=== PATIENT | female | born 2005 | race African-American/Black ===

== ENCOUNTER 2024-09-25 21:54 | Emergency (ER) | payer OTHER, SELFPAY ==
--- NOTE | ~2024-09-25 | XR_ITS ---
EXAMINATION: XR chest 2V DATE: 09/25/2024 22:23 INDICATION: Chest pressure. TECHNIQUE: Frontal and lateral views of the chest were obtained. COMPARISON: Chest 2 views 07/31/2005 FINDINGS: There is no pneumonia, pleural effusion, or pneumothorax. The heart size is normal. There a re surgical clips in the abdomen. There is mild chronic anterior wedging of lower thoracic vertebral bodies. IMPRESSION: 1. No acute cardiopulmonary disease. Reviewed, dictated and finalized at location A. [facility]
--- NOTE | 2024-09-25 21:56 | ECG_ITS ---
Test Date: 2024-09-25 22:08:54 Measurements Intervals [place] Rate: 79 P: 57 ND: 155 QRS: 56 QRSD: 88 T: -3 QT: 356 QTc: 409 Interpretive Statements SINUS RHYTHM NONSPECIFIC T-WAVE ABNORMALITY No previous ECG available for comparison Electronically Signed On 09-26-2024 16:13:04 PROCESS DESCRIPTION WRITER by Anni Rosado M.D.
[2024-09-25 22:00] VITALS: BP 142/55; PULSE 79; RESP 17; TEMP 36.3; O2SAT 100
[2024-09-25 22:39] LABS: Basophils Percent Auto 0.4 % (0.2-1.2); Eosinophils Absolute Auto 0.1 K/mm3 (0-0.3); Eosinophils Percent Auto 0.7 % (0-4.4); Hematocrit 35.7 % (37.0-47.0); Immature Granulocyte Absolute 0.02 K/mm3 (0.00-0.031); Immature Granulocyte Percent A 0.3 % (0-0.5); Lymphocytes Absolute Auto 2.24 K/mm3 (0.9-3.2); Lymphocytes Percent Auto 33.3 % (18.3-44.2); Mean Corpuscular HGB Conc 30.8 g/dl (32-36); Mean Corpuscular Hemoglobin 24.8 pg (26-34); Mean Corpuscular Volume 80.4 fl (80-100); Mean Platelet Volume 12.1 fl (7.4-10.4); Monocytes Absolute Auto 0.5 K/mm3 (0.1-0.6); Monocytes Percent Auto 7.4 % (2.6-8.5); Neutrophils Absolute Auto 3.9 K/mm3 (1.3-6.7); Neutrophils Percent Auto 57.9 % (45.5-73.1); Platelet Count Result 229 k/mm3 (150-375); Red Blood Count 4.44 M/mm3 (4.2-5.4); Red Cell Distribution Width 15.4 % (11.5-14.5); White Blood Count 6.7 K/mm3 (4.5-10.0)
[2024-09-25 22:51] VITALS: O2SAT 100
--- NOTE | 2024-09-25 22:52 | PC.NURSE ---
Patient denies pain at this time. patient states the pressure lasted about 5 minutes then went away and patient has not had pain since
[2024-09-25 22:53] LABS: INR 1.1; Prothrombin Time 14.3 Seconds (11.1-14.7)
[2024-09-25 22:54] LABS: Partial Thromboplastin Time 29.5 Seconds (22.3-36.8)
[2024-09-25 22:55] LABS: Alanine Aminotransferase 13 U/L (6-35); Alkaline Phosphatase 57 U/L (38-126); Anion Gap 3 mmol/L (4-12); Aspartate Amino Transferase 23 U/L (14-36); Bilirubin,Total 0.6 mg/dL (0.2-1.3); Blood Urea Nitrogen 8 mg/dL (7-17); Calcium 9.1 mg/dL (8.4-10.2); Carbon Dioxide 26 mmol/L (22-30); Chloride 109 mmol/L (98-107); Estimated CRCL calculation 134 ml/min; Estimated Glomerular Filt Rate > 60; Glucose 96 mg/dL (65-110); Lipase 201 U/L (23-300); Potassium 3.3 mmol/L (3.4-5.0); Sodium 138 mmol/L (137-145)
[2024-09-25 23:06] LABS: Troponin I < 0.012 ng/mL (0.000-0.034)
--- NOTE | 2024-09-26 00:42 | ED_ITS ---
HPI - General Adult General Chief complaint: Chest Pain Stated complaint: random sharp pain in chest Time Seen by Provider: 09/25/24 23:49 History of Present Illness HPI narrative: Patient is a 28-year-old female who presents emergency department with chief complaint of chest pain. Patient reports that about an hour prior to arrival she had an episode where it felt like a band around her chest. The patient reports that it got tight reports that it lasted for about 10 minutes the patient does report that she has history of gastric sleeve reports that she has not had any real complications with that in the past. The patient reports no prior history of cardiac disease Related Data Home Medications ?Medication ?Instructions ?Recorded ?Confirmed ?Last Taken ?Type No Home Medications 05/30/24 05/30/24 Unknown History Allergies Allergy/AdvReac Type Severity Reaction Status Date / Time No Known Allergies Allergy Verified 05/30/24 14:48 Review of Systems 2 Review of Systems: A 10 system review of systems was completed on the patient and is negative except for what is stated in the HPI. Nursing and ancillary documentation was reviewed. [facility] Family History Family History Mother Hypertension Diabetes mellitus PCOS (polycystic ovarian syndrome) Social History Social History Smoking status: Never smoker Alcohol intake: never Substance use: never Substance use type: does not use Living arrangements: with family Occupation/Education: student Exam 2 Narrative: GENERAL: Well-appearing, well-nourished, and in no acute distress. HEAD: Normocephalic, atraumatic. EYES: PERRLA and EOMI. ENT: Nares clear, no rhinorrhea or epistaxis. Mucous membranes moist. NECK: Supple. CHEST: Clear to auscultation. No respiratory distress. HEART: Regular rate and rhythm. No murmur heard. Normal peripheral pulses. ABDOMEN: Soft, nontender, nondistended, normal active bowel sounds. EXTREMITIES: Normal range of motion. No edema. SKIN: Warm, dry, no rash. NEURO: No focal deficits. Alert and oriented x3. PSYCH: Normal mood and affect. Course Vital Signs Vital signs: Vital Signs Temperature 36.3 C L 09/25/24 22:00 Pulse Rate 79 09/25/24 22:00 Respiratory Rate 17 12/16/24 22:00 Blood Pressure 142/55 H 09/25/24 22:00 Pulse Oximetry 100 09/25/24 22:00 Oxygen Delivery Room Air 09/25/24 22:00 Temperature 36.3 C L 09/25/24 22:00 Pulse Rate 69 09/26/24 02:01 Respiratory Rate 14 09/26/24 02:01 Blood Pressure 117/56 L 09/26/24 02:01 Pulse Oximetry 99 09/26/24 02:01 Oxygen Delivery Room Air 09/25/24 22:51 Medical Decision Making MDM Narrative Medical decision making narrative: differential diagnosis includes ACS, chest wall pain, EKG showed no acute ischemic changes initial troponin was negative, 3 hour troponin was negative. Laboratory studies otherwise showed no acute abnormality the patient was discharged home to follow-up with her primary care provider Vital Signs Vital Signs: Vital Signs Temperature 36.3 C L 09/25/24 22:00 Pulse Rate 79 09/25/24 22:00 Respiratory Rate 17 09/25/24 22:00 Blood Pressure 142/55 H 09/25/24 22:00 Pulse Oximetry 100 09/25/24 22:00 Oxygen Delivery Room Air 09/25/24 22:00 Temperature 36.3 C L 09/25/24 22:00 Pulse Rate 69 09/26/24 02:01 Respiratory Rate 14 09/26/24 02:01 Blood Pressure 117/56 L 09/26/24 02:01 Pulse Oximetry 99 09/26/24 02:01 Oxygen Delivery Room Air 09/25/24 22:51 Lab Data 09/25/24 22:32 09/25/24 22:32 Labs: Lab Results 09/25/24 09/26/24 Range/Units 22:32 01:11 WBC 6.7 (4.5-10.0) K/mm3 RBC 4.44 (4.2-5.4) M/mm3 Hgb 11.0 L (12.0-15.0) g/dL Hct 35.7 L (37.0-47.0) % MCV 80.4 (80-100) fl MCH 24.8 L (26-34) pg MCHC 30.8 L (32-36) g/dl RDW 15.4 H (11.5-14.5) % Plt Count 229 (150-375) k/mm3 MPV 12.1 H (7.4-10.4) fl Immature Gran % (Auto) 0.3 (0-0.5) % Neut % (Auto) 57.9 (45.5-73.1) % Lymph % (Auto) 33.3 (18.3-44.2) % [place] % (Auto) 7.4 (2.6-8.5) % Eos % (Auto) 0.7 (0-4.4) % Baso % (Auto) 0.4 (0.2-1.2) % Lymph # (Auto) 2.24 (0.9-3.2) K/mm3 [place] # (Auto) 0.5 (0.1-0.6) K/mm3 Eos # (Auto) 0.1 (0-0.3) K/mm3 Baso # (Auto) 0.0 (0.0-0.1) K/mm3 Abs Immat Gran (auto) 0.02 (0.00-0.031) K/mm3 Absolute Neuts (auto) 3.9 (1.3-6.7) K/mm3 Absolute Nucleated RBC 0.000 (0.0-0.012) K/mm3 Nucleated RBC % 0.0 (0.0-0.2) % PT 14.3 (11.1-14.7) Seconds INR 1.1 APTT 29.5 (22.3-36.8) Seconds Sodium 138 (137-145) mmol/L Potassium 3.3 L (3.4-5.0) mmol/L Chloride 109 H (98-107) mmol/L Carbon Dioxide 26 (22-30) mmol/L Anion Gap 3 L (4-12) mmol/L BUN 8 (7-17) mg/dL Creatinine 0.80 (0.7-1.0) mg/dL Estim Creat Clear Calc 134 ml/min Estimated GFR > 60 (59 - ) Glucose 96 (65-110) mg/dL Calcium 9.1 (8.4-10.2) mg/dL Total Bilirubin 0.6 (0.2-1.3) mg/dL AST 23 (14-36) U/L ALT 13 (6-35) U/L Alkaline Phosphatase 57 (38-126) U/L Troponin I < 0.012 < 0.012 (0.000-0.034) ng/mL Total Protein 8.0 (6.3-8.2) g/dL Albumin 4.0 (3.5-5.1) g/dL Lipase 201 (23-300) U/L Discharge Plan Discharge Clinical Impression: Atypical chest pain Patient Disposition: Home, Self-Care Condition: Stable Instructions: Antibiotic Form, Chest Pain (ED) Patient Language: Malawian Prescriptions: No Action No Home Medications Follow-up/Referrals: Luis Carlos,MD Jose [Primary Care Provider] - Time of Disposition: 02:24 Quality HEART score for chest pain patients History: slightly suspicious ECG: normal Age: < or = to 45 years Risk factors: 1 or 2 risk factors Troponin: < or = to 1x normal limit Heart score: 1
[2024-09-26 01:39] LABS: Troponin I < 0.012 ng/mL (0.000-0.034)
[2024-09-26 02:01] VITALS: BP 117/56; PULSE 69; RESP 14; O2SAT 99
[2024-09-26 02:35] VITALS: BP 124/78; PULSE 70; RESP 20; O2SAT 100
== END 2024-09-26 02:37 | disposition home or self-care (01) ==
PROVIDERS: Emergency Provider Emergency Medicine; PCP Internal Medicine
DX: R07.89 Other chest pain (principal); R94.31 Abnormal electrocardiogram [ECG] [EKG]
CPT/HCPCS: 36415; 71046; 80053; 83690; 84484; 85025; 85610; 85730; 93005; 99284

== ENCOUNTER 2025-01-10 08:46 | Emergency (ER) | payer OTHER, SELFPAY ==
[2025-01-10 08:52] VITALS: BP 136/74; PULSE 74; RESP 16; TEMP 36.7; O2SAT 99
--- OUTSIDE RECORDS SUMMARY | 2025-01-10 09:00 | XMS_ITS | Data Portability ---
Author Organization [facility] JOEYNehal Address [address] [place] [address] Care Team Providers Care Information Security Officer Name Role Phone HUGO TARUN Primary Care Provider [phone] Assessment Encounter Date Assessment Date Assessment LastModified by Organization Details LastModified Time 04/03/2024 04/03/2024 given mom's history of PCOS weight gain we will obtain blood work transvaginal ultrasound get her set up with air dispatcher appointment healthier lifestyle instructions discussed I will see her back in 4-6 weeks [email or web address] Not available 04/08/2024 13:03:55 05/08/2024 05/08/2024 left ovarian cyst possibly hemorrhagic she is already set up to see air dispatcher. Microcytic anemia she can take the iron probably from menstrual losses. Follow up with me in 4 months Not available 05/11/2024 21:13:34 10/26/2024 10/26/2024 healthy lifestyle instructions she will see me back in a year [email or web address] Not available 10/26/2024 23:15:32 Plan of Treatment Reminders Order Date Submit Date Provider Last Modified By Organization Details Last Modified Time Details Appointments None recorded. Lab TSH + free T4, serum 2023 024 ZURDO [facility], [address] [facility], [facility] [address], [place], [address], 12:38:23 TSH, ultra-sensi tive, serum 2023 024 cyahlma [facility], [address] [facility], [facility], [place], [address], 07/26/202 4 13:42:04 CBC w/ auto diff 2023 024 ZURDO [facility], [address] [facility], [address], [place], [address], 4 12:38:27 CMP, serum or plasma 2023 024 ZURDO [facility], [address] [facility], [address], [place], [address], 4 12:38:24 cortisol, serum or plasma 2023 024 ZURDO [facility], [address] [facility], [address], [place], [address], 4 12:38:25 insulin, serum 2023 024 ZURDO [facility], [address] [facility], [facility], [place], [address], 4 12:38:26 prolactin, serum 2023 024 ZURDO [facility], [address] [facility], [address], [place], [address], 4 12:38:26 dhea-sulfat e, serum 2023 024 ZURDO [facility], [address] [facility], [facility], [place], [address], 4 15:14:36 lipid panel, serum 2023 024 ZURDO [facility], [address] [facility], [address], [place], [address], 4 12:38:24 Referral endocrinolo gy referral 2023 024 [place], [address] , [place], [address], 5 12:13:23 gynecologis t referral 2023 024 millicent Carrion MD, [address], [address], [place], [address], 5 12:13:23 Procedures None recorded. Surgeries None recorded. Imaging US, transvagina l 2023 024 [facility] [place] (Imaging), [address] [place], [address], 4 23:18:19 Medication Orders None recorded. Patient TargetsNo targets recorded. Patient Instructions Encounter Date Encounter Id Patient Instructions Last Modified By Organization Details Last Modified Time 04/03/2024 [id number] A healthy lifestyle: care instructions [email or web address] Not available 04/03/2024 17:57:45 10/26/2024 [id number] A healthy lifestyle: care instructions [email or web address] Not available 10/26/2024 14:40:35 Reason for Referral Account Representative Referral for Gy necologic examination Referring Physician: Tarun Aldridge, Internal Medicine, Encounter Date: 04/03/2024 Endocrinology Referral for W eight gain Referring Physician: Tarun Aldridge, Internal Medicine, Encounter Date: 04/03/2024 Results Created Date Observation Date Name Description Value Unit Range Abnormal Flag Note LastModifiedBy Organization Detail LastModifiedTime 05/20/2005/20/2022 Chori ogona dotro pin.b eta subun it [Unit s/vol ume] in Serum or Plasm a B-HCG <0.2 B-HCG Not Available Not Availa ble 11/24/2024 16:02:59 04/04/2004/05/2024 TSH+F REE T4 TSH 3.280 uIU/m L 0.450- 4.500 Not Available [facility] ([facility]) [address] [place], [address], 04/05/2024 12:38:23 04/04/20 24 04/05/2024 TSH+F REE T4 T4,free(dire ct) 1.09 NG/dL 0.93-1 .60 Not Available [facility] ([facility]) [address] [facility], [place], [address], 04/05/2024 12:38:23 04/04/20 24 04/05/2024 LIPID PANEL cholesterol, total 176 mg/dL 100-16 9 above high normal Not Available [facility] ([facility]) [address] [facility] [place], [address], 04/05/2024 12:38:23 04/04/20 24 04/05/2024 LIPID PANEL triglyceride s 69 mg/dL 0-89 Not Available [facility] ([facility]) [address] [place], [address], 04/05/2024 12:38:23 04/04/20 24 04/05/2024 LIPID PANEL HDL cholesterol 43 mg/dL >39 Not Available [facility] ([facility]) [address] [place], [address], 04/05/2024 12:38:23 04/04/20 24 04/05/2024 LIPID PANEL VLDL cholesterol thomas 13 mg/dL 5-40 Not Available [facility] ([facility]) [address] [place], [address], 04/05/2024 12:38:23 04/04/20 24 04/05/2024 LIPID PANEL LDL chol calc ([facility]) 120 mg/dL 0-109 above high normal Not Available [facility] ([facility]) [address] [place], [address], 04/05/2024 12:38:23 04/04/20 24 04/05/2024 COMP. METAB OLIC PANEL (14) glucose 90 mg/dL 70-99 Not Available [facility] ([facility]) [address] [place], [address], 04/05/2024 12:38:24 04/04/20 24 04/05/2024 COMP. METAB OLIC PANEL (14) BUN 9 mg/dL 6-20 Not Available [facility] ([facility]) [address] [place], [address], 04/05/2024 12:38:24 04/04/20 24 04/05/2024 COMP. METAB OLIC PANEL (14) creatinine 0.82 mg/dL 0.57-1 .00 Not Available [facility] ([facility]) [address] [place], [address], 04/05/2024 12:38:24 04/04/20 24 04/05/2024 COMP. METAB OLIC PANEL (14) eGFR 106 mL/mi n/1.7 3 >59 Not Available [facility] ([facility]) [address] [facility] [place], [address], 04/05/2024 12:38:24 04/04/20 24 04/05/2024 COMP. METAB OLIC PANEL (14) BUN/creatini ne ratio 11 9-23 Not Available [facility] ([facility]) [address] [facility], [place], [address], 04/05/2024 12:38:24 04/04/20 24 04/05/2024 COMP. METAB OLIC PANEL (14) sodium 140 mmol/ L 134-14 4 Not Available [facility] ([facility]) [address] [facility] [place], [address], 04/05/2024 12:38:24 04/04/20 24 04/05/2024 COMP. METAB OLIC PANEL (14) potassium 4.4 mmol/ L 3.5-5. 2 Not Available [facility] ([facility]) [address] [facility] [place], [address], 04/05/2024 12:38:24 04/04/20 24 04/05/2024 COMP. METAB OLIC PANEL (14) chloride 106 mmol/ L 96-106 Not Available [facility] ([facility]) [address] [facility] [place], [address], 04/05/2024 12:38:24 04/04/20 24 04/05/2024 COMP. METAB OLIC PANEL (14) carbon dioxide, total 23 mmol/ L 20 Not Available [facility] ([facility]) [address] [place], [address], 04/05/2024 12:38:24 04/04/20 24 04/05/2024 COMP. METAB OLIC PANEL (14) calcium 9.0 mg/dL 8.7-10 .2 Not Available [facility] ([facility]) [address] [place], [address], 04/05/2024 12:38:24 04/04/20 24 04/05/2024 COMP. METAB OLIC PANEL (14) protein, total 7.2 g/dL 6.0-8. 5 Not Available [facility] ([facility]) [address] [place], [address], 04/05/2024 12:38:24 04/04/20 24 04/05/2024 COMP. METAB OLIC PANEL (14) albumin 3.7 g/dL 4.0-5. 0 below low normal Not Available [facility] ([facility]) [address] [place], [address], 04/05/2024 12:38:24 04/04/20 24 04/05/2024 COMP. METAB OLIC PANEL (14) globulin, total 3.5 g/dL 1.5-4. 5 Not Available [facility] ([facility]) [address] [place], [address], 04/05/2024 12:38:24 04/04/20 24 04/05/2024 COMP. METAB OLIC PANEL (14) bilirubin, total 0.3 mg/dL 0.0-1. 2 Not Available [facility] ([facility] [address] [place], [address], 04/05/2024 12:38:24 04/04/20 24 04/05/2024 COMP. METAB OLIC PANEL (14) alkaline phosphatase 59 IU/L 42-106 Not Available [facility] ([facility]) [address] [place], [address], 04/05/2024 12:38:24 04/04/20 24 04/05/2024 COMP. METAB OLIC PANEL (14) AST (SGOT) 13 IU/L 0-40 Not Available [facility] ([facility]) [address] [facility] [place], [address], 04/05/2024 12:38:24 04/04/20 24 04/05/2024 COMP. METAB OLIC PANEL (14) ALT (SGPT) 12 IU/L 0-32 Not Available [facility] ([facility]) [address] [place], [address], 04/05/2024 12:38:24 04/04/20 24 04/05/2024 CORTI DARCY cortisol 11.8 ug/dL 6.2-19 .4 Michelle smith Note: The refer ence inter gil and amanda ing for this test is for an AM colle ction . If this is a PM colle ction michelle smith use: Corti darcy PM: 2.3-1 1.9 Not Available [facility] ([facility]) [address] [place], [address], 04/05/2024 12:38:25 04/04/20 24 04/05/2024 INSUL IN insulin 28.7 uIU/m L 2.6-24 .9 above high normal Not Available [facility] ([facility]) [address] [place], [address], 04/05/2024 12:38:25 04/04/20 24 04/05/2024 [address]IN prolactin 24.3 NG/mL 4.8-33 .4 Not Available [facility] ([facility]) [address] [place], [address], 04/05/2024 12:38:26 04/04/20 24 04/05/2024 CBC WITH DIFFE RENTI AL/PL ATELE T WBC 4.8 x10e3 /uL 3.4-10 .8 Not Available [facility] ([facility]) [address] [place], [address], 04/05/2024 12:38:27 04/04/20 24 04/05/2024 CBC WITH DIFFE RENTI AL/PL ATELE T RBC 4.20 x10e6 /uL 3.77-5 .28 Not Available [facility] ([facility]) [address] [place], [address], 04/05/2024 12:38:27 04/04/20 24 04/05/2024 CBC WITH DIFFE RENTI AL/PL ATELE T hemoglobin 8.9 g/dL 11.1-1 5.9 below low normal Not Available [facility] ([facility]) [address] [place], [address], 04/05/2024 12:38:27 04/04/20 24 04/05/2024 CBC WITH DIFFE RENTI AL/PL ATELE T hematocrit 30.6 % 34.0-4 6.6 below low normal Not Available [facility] ([facility]) [address] [place], [address], 04/05/2024 12:38:27 04/04/20 24 04/05/2024 CBC WITH DIFFE RENTI AL/PL ATELE T MCV 73 fL 79-97 below low normal Not Available [facility] ([facility]) [address] [place], [address], 04/05/2024 12:38:27 04/04/20 24 04/05/2024 CBC WITH DIFFE RENTI AL/PL ATELE T MCH 21.2 pg 26.6-3 3.0 below low normal Not Available [facility] ([facility]) [address] [facility] [place], [address], 04/05/2024 12:38:27 04/04/20 24 04/05/2024 CBC WITH DIFFE RENTI AL/PL ATELE T MCHC 29.1 g/dL 31.5-3 5.7 below low normal Not Available [facility] ([facility]) [address] [facility], [place], [address], 04/05/2024 12:38:27 04/04/20 24 04/05/2024 CBC WITH DIFFE RENTI AL/PL ATELE T RDW 15.1 % 11.7-1 5.4 Not Available [facility] ([facility]) [address] [facility], [place], [address], 04/05/2024 12:38:27 04/04/20 24 04/05/2024 CBC WITH DIFFE RENTI AL/PL ATELE T platelets 287 x10e3 /uL 150-45 0 Not Available [facility] ([facility]) [address] [facility], [place], [address], 04/05/2024 12:38:27 04/04/20 24 04/05/2024 CBC WITH DIFFE RENTI AL/PL ATELE T neutrophils 53 % notest ab. Not Available [facility] ([facility]) [address] [facility], [place], [address], 04/05/2024 12:38:27 04/04/20 24 04/05/2024 CBC WITH DIFFE RENTI AL/PL ATELE T lymphs 38 % notest ab. Not Available [facility] ([facility]) [address] [facility], [place], [address], 04/05/2024 12:38:27 04/04/20 24 04/05/2024 CBC WITH DIFFE RENTI AL/PL ATELE T monocytes 7 % notest ab. Not Available [facility] ([facility]) [address] [facility], [place], [address], 04/05/2024 12:38:27 04/04/20 24 04/05/2024 CBC WITH DIFFE RENTI AL/PL ATELE T eos 1 % notest ab. Not Available [facility] ([facility]) [address] [place], [address], 04/05/2024 12:38:27 04/04/20 24 04/05/2024 CBC WITH DIFFE RENTI AL/PL ATELE T basos 1 % notest ab. Not Available [facility] ([facility]) [address] [place], [address], 04/05/2024 12:38:27 04/04/20 24 04/05/2024 CBC WITH DIFFE RENTI AL/PL ATELE T neutrophils (absolute) 2.6 x10e3 /uL 1.4-7. 0 Not Available [facility] ([facility]) [address] [place], [address], 04/05/2024 12:38:27 04/04/20 24 04/05/2024 CBC WITH DIFFE RENTI AL/PL ATELE T lymphs (absolute) 1.8 x10e3 /uL 0.7-3. 1 Not Available [facility] ([facility]) [address] [place], [address], 04/05/2024 12:38:27 04/04/20 24 04/05/2024 CBC WITH DIFFE RENTI AL/PL ATELE T monocytes(ab solute) 0.4 x10e3 /uL 0.1-0. 9 Not Available [facility] ([facility]) [address] [place], [address], 04/05/2024 12:38:27 04/04/20 24 04/05/2024 CBC WITH DIFFE RENTI AL/PL ATELE T eos (absolute) 0.1 x10e3 /uL 0.0-0. 4 Not Available [facility] ([facility]) [address] [place], [address], 04/05/2024 12:38:27 04/04/20 24 04/05/2024 CBC WITH DIFFE RENTI AL/PL ATELE T baso (absolute) 0.0 x10e3 /uL 0.0-0. 2 Not Available [facility] ([facility]) [address] [facility], [place], [address], 04/05/2024 12:38:27 04/04/20 24 04/05/2024 CBC WITH DIFFE RENTI AL/PL ATELE T immature granulocytes 0 % notest ab. Not Available [facility] ([facility]) [address] [facility], [place], [address], 04/05/2024 12:38:27 04/04/20 24 04/05/2024 CBC WITH DIFFE RENTI AL/PL ATELE T immature grans (abs) 0.0 x10e3 /uL 0.0-0. 1 Not Available [facility] ([facility]) [address] [facility], [place], [address], 04/05/2024 12:38:27 04/04/20 24 04/12/2024 DHEA- SULFA TE, SERUM DHEA-sulfate , lcms 133 ug/dL This test was go[facility] [place] and its perfo rmanc e dirk cteri stics deter mined by [facility]. It has not been clear ed or appro abeba by the Food and Drug Admin istra tion. Refer ence Range : Tanne r Age Range Stage (year s) (ug/d L) 1 <9.2 19 - 144 2 9.2 - 13.7 34 - 129 3 10.0 - 14.4 32 - 226 4 10.7 - 15.6 58 - 260 5 11.8 - 18.6 44 - 248 Adult 21 - 30 22 - 372 Not Available [facility] [address] [place] [address], [place], [address], 04/12/2024 15:14:36 04/07/20 24 04/08/2024 VITAM IN B12 AND FOLAT E vitamin B12 458 pg/mL 232-12 45 Not Available [facility] ([facility]) [address] [facility], [place], [address], 04/08/2024 08:23:35 04/07/20 24 04/08/2024 VITAM IN B12 AND FOLAT E folate (folic acid), serum 3.9 NG/mL >3.0 A serum folat e madison ntrat ion of less than 3.1 ng/mL is consi dered to repre sent clini thomas defic iency . Not Available [facility] ([facility]) [address] [place], [address], 04/08/2024 08:23:35 04/07/20 24 04/08/2024 IRON AND TIBC iron bind.cap.(TI BC) 424 ug/dL 250-45 0 Not Available [facility] ([facility]) [address] [facility], [place], [address], 04/08/2024 08:23:35 04/07/20 24 04/08/2024 IRON AND TIBC UIBC 404 ug/dL 131-42 5 Not Available [facility] ([facility]) [address] [facility], [place], [address], 04/08/2024 08:23:35 04/07/20 24 04/08/2024 IRON AND TIBC iron 20 ug/dL 27-159 below low normal Not Available [facility] ([facility]) [address] [place], [address], 04/08/2024 08:23:35 04/07/20 24 04/08/2024 IRON AND TIBC iron saturation 5 % 15-55 alert low Not Available [facility] ([facility]) [address] [place], [address], 04/08/2024 08:23:35 11/01/19 25 11/07/2024 VITAM IN B1 (THIA MINE) , BLOOD vit. B1, whole blood 44.4 nmol/ L 66.5-2 00.0 below low normal Malia ified by farhan stanton Not Available [facility] ([facility]) [address] [place], [address], 11/07/2024 15:07:37 11/01/19 25 11/02/2024 LIPID PANEL cholesterol, total 158 mg/dL 100-19 9 Not Available [facility] ([facility]) [address] [place], [address], 11/17/2024 11:08:05 11/01/19 25 11/02/2024 LIPID PANEL triglyceride s 64 mg/dL 0-149 Not Available [facility] ([facility]) [address] [place], [address], 11/17/2024 11:08:05 11/01/19 25 11/02/2024 LIPID PANEL HDL cholesterol 41 mg/dL >39 Not Available [facility] ([facility]) [address] [place], [address], 11/17/2024 11:08:05 11/01/19 25 11/02/2024 LIPID PANEL VLDL cholesterol thomas 13 mg/dL 5-40 Not Available [facility] ([facility]) [address] [place], [address], 11/17/2024 11:08:05 11/01/19 25 11/02/2024 LIPID PANEL LDL chol calc ([facility]) 104 mg/dL 0-99 above high normal Not Available [facility] ([facility]) [address] [place], [address], 11/17/2024 11:08:05 11/01/19 25 11/02/2024 T4, FREE T4,free(dire ct) 1.30 NG/dL 0.82-1 .77 Not Available [facility] ([facility]) [address] [place], [address], 11/17/2024 11:08:06 11/01/19 25 11/02/2024 COMP. METAB OLIC PANEL (14) glucose 81 mg/dL 70-99 Not Available [facility] ([facility]) [address] [facility], [place], [address], 11/17/2024 11:08:08 11/01/19 25 11/02/2024 COMP. METAB OLIC PANEL (14) BUN 7 mg/dL 6-20 Not Available [facility] ([facility]) [address] [facility] [place], [address], 11/17/2024 11:08:08 11/01/19 25 11/02/2024 COMP. METAB OLIC PANEL (14) creatinine 0.78 mg/dL 0.57-1 .00 Not Available [facility] ([facility]) [address] [facility], [place], [address], 11/17/2024 11:08:08 11/01/19 25 11/02/2024 COMP. METAB OLIC PANEL (14) eGFR 111 mL/mi n/1.7 3 >59 Not Available [facility] ([facility]) [address] [facility], [place], [address], 11/17/2024 11:08:08 11/01/19 25 11/02/2024 COMP. METAB OLIC PANEL (14) BUN/creatini ne ratio 9 9-23 Not Available [facility] ([facility]) [address] [facility] [place], [address], 11/17/2024 11:08:08 11/01/19 25 11/02/2024 COMP. METAB OLIC PANEL (14) sodium 140 mmol/ L 134-14 4 Not Available [facility] ([facility]) [address] [place], [address], 11/17/2024 11:08:08 11/01/19 25 11/02/2024 COMP. METAB OLIC PANEL (14) potassium 3.6 mmol/ L 3.5-5. 2 Not Available [facility] ([facility]) [address] [facility] [place], [address], 11/17/2024 11:08:08 11/01/19 25 11/02/2024 COMP. METAB OLIC PANEL (14) chloride 105 mmol/ L 96-106 Not Available [facility] ([facility]) [address] [facility] [place], [address], 11/17/2024 11:08:08 11/01/19 25 11/02/2024 COMP. METAB OLIC PANEL (14) carbon dioxide, total 20 mmol/ L 20-29 Not Available [facility] ([facility]) [address] [facility] [place], [address], 11/17/2024 11:08:08 11/01/19 25 11/02/2024 COMP. METAB OLIC PANEL (14) calcium 9.4 mg/dL 8.7-10 .2 Not Available [facility] ([facility]) [address] [facility] [place], [address], 11/17/2024 11:08:08 11/01/19 25 11/02/2024 COMP. METAB OLIC PANEL (14) protein, total 7.3 g/dL 6.0-8. 5 Not Available [facility] ([facility]) [address] [facility] [place], [address], 11/17/2024 11:08:08 11/01/19 25 11/02/2024 COMP. METAB OLIC PANEL (14) albumin 4.0 g/dL 4.0-5. 0 Not Available [facility] ([facility]) [address] [facility] [place], [address], 11/17/2024 11:08:08 11/01/19 25 11/02/2024 COMP. METAB OLIC PANEL (14) globulin, total 3.3 g/dL 1.5-4. 5 Not Available [facility] ([facility]) [address] [place], [address], 11/17/2024 11:08:08 11/01/19 25 11/02/2024 COMP. METAB OLIC PANEL (14) bilirubin, total 0.7 mg/dL 0.0-1. 2 Not Available [facility] ([facility]) [address] [place], [address], 11/17/2024 11:08:08 11/01/19 25 11/02/2024 COMP. METAB OLIC PANEL (14) alkaline phosphatase 53 IU/L 42-106 Not Available [facility] [address] [place], [address], 11/17/2024 11:08:08 11/01/19 25 11/02/2024 COMP. METAB OLIC PANEL (14) AST (SGOT) 14 IU/L 0-40 Not Available [facility] ([facility]) [address] [place], [address], 11/17/2024 11:08:08 11/01/19 25 11/02/2024 COMP. METAB OLIC PANEL (14) ALT (SGPT) 9 IU/L 0-32 Not Available [facility] ([facility]) [address] [place], [address], 11/17/2024 11:08:08 11/01/19 25 11/17/2024 PTH AB anti-PTH antibody NEGATI VE negati ve This test was devel oped and its inocencia tical perfo rmanc e dirk cteri stics have been deter mined by [facility] kendall Gani kiarra Newberry . It has not been clear ed or appro abeba by the FDA. This assay has been valid ated pursu ant to the CLIA regul ation s and is used for clini thomas purpo ses. Not Available [facility] ([facility]) [address] [place], [address], 11/17/2024 11:08:09 11/01/19 25 11/02/2024 PHOSP HORUS phosphorus 4.0 mg/dL 3.0-4. 3 Not Available [facility] ([facility]) [address] [place], [address], 11/17/2024 11:08:10 11/01/19 25 11/02/2024 IRON AND TIBC iron bind.cap.(TI BC) 359 ug/dL 250-45 0 Not Available [facility] ([facility]) [address] [place], [address], 11/17/2024 11:08:11 11/01/19 25 11/02/2024 IRON AND TIBC UIBC 307 ug/dL 131-42 5 Not Available [facility] ([facility]) [address] [place], [address], 11/17/2024 11:08:11 11/01/19 25 11/02/2024 IRON AND TIBC iron 52 ug/dL 27-159 Not Available [facility] ([facility]) [address] [place], [address], 11/17/2024 11:08:11 11/01/19 25 11/02/2024 IRON AND TIBC iron saturation 14 % 15-55 below low normal Not Available [facility] ([facility]) [address] [place], [address], 11/17/2024 11:08:11 11/01/19 25 11/02/2024 VITAM IN B12 vitamin B12 489 pg/mL 232-12 45 Not Available [facility] ([facility]) [address] [place], [address], 11/17/2024 11:08:12 11/01/19 25 11/02/2024 MAGNE SIUM magnesium 1.7 mg/dL 1.6-2. 3 Not Available [facility] ([facility]) [address] [place], [address], 11/17/2024 11:08:13 11/01/19 25 11/03/2024 COPPE R, SERUM OR PLASM A copper, serum or plasma 97 ug/dL 80-158 Detec tion Limit = 5 Not Available [facility] ([facility]) [address] [place], [address], 11/17/2024 11:08:15 11/01/19 25 11/03/2024 ZINC, PLASM A OR SERUM zinc, plasma or serum 69 ug/dL 44-115 Detec tion Limit = 5 Not Available [facility] ([facility]) [address] [facility], [place], [address], 11/17/2024 11:08:16 11/01/19 25 11/02/2024 TSH TSH 2.740 uIU/m L 0.450- 4.500 Not Available [facility] ([facility]) [address] [place], [address], 11/17/2024 11:08:17 11/01/19 25 11/02/2024 DINORAH TIN ferritin 22 NG/mL 15-150 Not Available [facility] ([facility]) [address] [place], [address], 11/17/2024 11:08:18 11/01/19 25 11/04/2024 VITAM IN B6, PLASM A vitamin B6 13.3 ug/L 3.4-65 .2 Defic iency : <3.4 Cassidy nal: 3.4 - 5.1 Adequ ate: >5.1 Not Available [facility] ([facility]) [address] [facility], [place], [address], 11/17/2024 11:08:19 11/01/19 25 11/02/2024 TRANS DINORAH N transferrin 298 mg/dL 192-36 4 Not Available [facility] ([facility]) [address] [facility], [place], [address], 11/17/2024 11:08:20 11/01/19 25 11/01/2024 CBC WITH DIFFE RENTI AL/PL ATELE T WBC 4.4 x10e3 /uL 3.4-10 .8 Not Available [facility] ([facility]) [address] [facility], [place], [address], 11/17/2024 11:08:22 11/01/19 25 11/01/2024 CBC WITH DIFFE RENTI AL/PL ATELE T RBC 4.28 x10e6 /uL 3.77-5 .28 Not Available [facility] ([facility]) [address] [facility], [place], [address], 11/17/2024 11:08:22 11/01/19 25 11/01/2024 CBC WITH DIFFE RENTI AL/PL ATELE T hemoglobin 10.8 g/dL 11.1-1 5.9 below low normal Not Available [facility] ([facility]) [address] [facility], [place], [address], 11/17/2024 11:08:22 11/01/19 25 11/01/2024 CBC WITH DIFFE RENTI AL/PL ATELE T hematocrit 36.2 % 34.0-4 6.6 Not Available [facility] ([facility]) [address] [facility], [place], [address], 11/17/2024 11:08:22 11/01/19 25 11/01/2024 CBC WITH DIFFE RENTI AL/PL ATELE T MCV 85 fL 79-97 Not Available [facility] ([facility]) [address] [facility], [place], [address], 11/17/2024 11:08:22 11/01/19 25 11/01/2024 CBC WITH DIFFE RENTI AL/PL ATELE T MCH 25.2 pg 26.6-3 3.0 below low normal Not Available [facility] ([facility]) [address] [facility], [place], [address], 11/17/2024 11:08:22 11/01/19 25 11/01/2024 CBC WITH DIFFE RENTI AL/PL ATELE T MCHC 29.8 g/dL 31.5-3 5.7 below low normal Not Available [facility] ([facility]) [address] [facility], [place], [address], 11/17/2024 11:08:22 11/01/19 25 11/01/2024 CBC WITH DIFFE RENTI AL/PL ATELE T RDW 13.9 % 11.7-1 5.4 Not Available [facility] ([facility]) [address] [facility], [place], [address], 11/17/2024 11:08:22 11/01/19 25 11/01/2024 CBC WITH DIFFE RENTI AL/PL ATELE T platelets 210 x10e3 /uL 150-45 0 Not Available [facility] ([facility]) [address] [facility], [place], [address], 11/17/2024 11:08:22 11/01/19 25 11/01/2024 CBC WITH DIFFE RENTI AL/PL ATELE T neutrophils 56 % notest ab. Not Available [facility] ([facility]) [address] [facility], [place], [address], 11/17/2024 11:08:22 11/01/19 25 11/01/2024 CBC WITH DIFFE RENTI AL/PL ATELE T lymphs 35 % notest ab. Not Available [facility] ([facility]) [address] [place], [address], 11/17/2024 11:08:22 11/01/19 25 11/01/2024 CBC WITH DIFFE RENTI AL/PL ATELE T monocytes 8 % notest ab. Not Available [facility] ([facility]) [address] [facility], [place], [address], 11/17/2024 11:08:22 11/01/19 25 11/01/2024 CBC WITH DIFFE RENTI AL/PL ATELE T eos 1 % notest ab. Not Available [facility] ([facility]) [address] [facility], [place], [address], 11/17/2024 11:08:22 11/01/19 25 11/01/2024 CBC WITH DIFFE RENTI AL/PL ATELE T basos 0 % notest ab. Not Available [facility] ([facility]) [address] [facility], [place], [address], 11/17/2024 11:08:22 11/01/19 25 11/01/2024 CBC WITH DIFFE RENTI AL/PL ATELE T neutrophils (absolute) 2.5 x10e3 /uL 1.4-7. 0 Not Available [facility] ([facility]) [address] [facility], [place], [address], 11/17/2024 11:08:22 11/01/19 25 11/01/2024 CBC WITH DIFFE RENTI AL/PL ATELE T lymphs (absolute) 1.5 x10e3 /uL 0.7-3. 1 Not Available [facility] ([facility]) [address] [place], [address], 11/17/2024 11:08:22 11/01/19 25 11/01/2024 CBC WITH DIFFE RENTI AL/PL ATELE T monocytes(ab solute) 0.3 x10e3 /uL 0.1-0. 9 Not Available [facility] ([facility]) [address] [place], [address], 11/17/2024 11:08:22 11/01/19 25 11/01/2024 CBC WITH DIFFE RENTI AL/PL ATELE T eos (absolute) 0.0 x10e3 /uL 0.0-0. 4 Not Available [facility] ([facility]) [address] [facility], [place], [address], 11/17/2024 11:08:22 11/01/19 25 11/01/2024 CBC WITH DIFFE RENTI AL/PL ATELE T baso (absolute) 0.0 x10e3 /uL 0.0-0. 2 Not Available [facility] ([facility]) [address] [facility], [place], [address], 11/17/2024 11:08:22 11/01/19 25 11/01/2024 CBC WITH DIFFE RENTI AL/PL ATELE T immature granulocytes 0 % notest ab. Not Available [facility] ([facility]) [address] [facility], [place], [address], 11/17/2024 11:08:22 11/01/19 25 11/01/2024 CBC WITH DIFFE RENTI AL/PL ATELE T immature grans (abs) 0.0 x10e3 /uL 0.0-0. 1 Not Available [facility] ([facility]) [address] [facility], [place], [address], 11/17/2024 11:08:22 11/01/19 25 11/06/2024 VITAM IN A, SERUM vitamin A 18.9 ug/dL 18.9-5 7.3 Refer ence inter vals for vitam in A deter mined from [facility] inter nal studi es. Indiv idual s with vitam in A less than 20 ug/dL are consi dered vitam in A defic ient and those with serum madison ntrat ions less than 10 ug/dL are consi dered sever zane defic ient. This test was devel oped and its perfo rmanc e dirk cteri stics deter mined by [facility]. It has not been clear ed or appro abeba by the Food and Drug Admin istra tion. Not Available [facility] ([facility]) [address] [facility], [place], [address], 11/17/2024 11:08:23 11/01/19 25 11/06/2024 VITAM IN E vitamin E(alpha tocopherol) 7.2 mg/L 5.9-19 .4 Not Available [facility] ([facility]) [address] [facility], [place], [address], 11/17/2024 11:08:24 11/01/19 25 11/06/2024 VITAM IN E vitamin E(gamma tocopherol) 0.9 mg/L 0.7-4. 9 Refer ence inter vals for alpha and gamma -toco phero l deter mined from [facility] Nutri tion Exami natio n Surve y, 2004- 2005. Indiv idual s with alpha -toco phero l level s less than 5.0 mg/L are consi dered vitam in E defic ient. Not Available [facility] ([facility]) [address] [facility], [place], [address], 11/17/2024 11:08:24 11/01/19 25 11/02/2024 VITAM IN D, 25-HY DROXY vitamin D, 25-hydroxy 33.2 NG/mL 30.0-1 00.0 Vitam in D defic iency has been defin ed by the Insti tute of Medic ine and an Endoc rine Socie ty pract ice guide line as a level of serum 25-OH vitam in D less than 20 ng/mL (1,2) . The Endoc rine Socie ty went on to furth er defin e vitam in D insuf ficie ncy as a level betwe en 21 and 29 ng/mL (2). 1. IOM (Inst itute of Medic ine). 2010. Dieta ry refer ence kayley es for calci um and D. Doyle lanier [place]: The Natio nal [employer] mi [employer] . 2. Debbie raman MF, [place], Uriel off-F errar i BRUNSON, et al. Evalu ation , treat ment, and preve ntion of vitam in D defic iency : an Endoc rine Socie ty clini thomas pract ice guide line. JCEM. 2010; 96(7) :1911 -30. Not Available [facility] ([facility]) [address], [place], [address], 11/17/2024 11:08:25 04/10/20 24 04/10/2024 US, trans vagin al No observ ation record ed. [facility] [place] [address] [place], [address], 04/20/2024 11:40:55 09/25/20 24 09/25/2024 XR, chest , 2 view No observ ation record ed. [facility] [address], [place], [address], 09/27/2024 09:26:14 Result Notes None recorded. Problems Name Problem SNOMED Code Status Onset Date Resolution Date Notes Provider Name and Address Organization Details Recorded Time Weight gain 9804300 Active 2023 Ester Cedillo MA null, [place] - [facility] 4 15:13:43 Obesity 167726724 Active 2023 Ester Cedillo [place] null, [place] - [facility] 4 15:13:45 Microcytic hypochromic anemia 23724102 Active 2023 Tarun Aldridge MD Attn: Ravinder barney,[address] [facility], [place], [address], [facility] 4 21:13:46 History of bariatric surgical procedure 242127417 Active 2024 Tarun Aldridge MD Attn: Ravinder barney,[address] [facility], [place], [address], [place] - [facility] 5 23:16:14 Problem Notes None recorded. Procedures Surgical History None recorded. Imaging Results Imaging Date Name Status LastModified by Organization Details LastModified Time 04/10/2024 US, transvaginal completed [facility] [place] [address], [place], [address], 04/20/2024 11:40:55 09/25/2024 XR, chest, 2 view completed [facility] [address], [place], [address], 09/27/2024 09:26:14 Procedure Notes None recorded. Medical Equipment None Reported. Allergies No known drug allergies Medications Name Sig Start Date Stop Date Status Note LastModified by Organization Details LastModified Time amoxicill in 500 mg capsule TAKE 1 CAPSULE BY MOUTH FOUR TIMES DAILY UNTIL ALL TAKEN active Not Available Not Available No t Available hydrocodo ne 5 mg-acetam inophen 325 mg tablet TAKE 1/2 TABLET BY MOUTH EVERY 6 HOURS NEEDED FOR PAIN active Not Available Not Available No t Available buspirone 7.5 mg tablet 04/03 completed pt reports she is not taking this Not Available Not Available Not Available FeroSul 325 mg (65 mg iron) tablet TAKE 1 TABLET BY MOUTH DAILY WITH BREAKFAS T 04/03 completed pt reports she is not taking this medicati on Not Available Not Available Not Available Vitals Date Recorded Body height Body mass index (BMI) Body mass index (BMI) Percentile per age and sex Body weight Heart rate Oxygen saturation Oxygen saturation in Arterial blood by Pulse oximetry Systolic blood pressure Diastolic blood pressure Provider Name and Address Organization Details Last Updated DateTime 4 185.42 cm 37.2 kg/m2 97.62 % 252464. 05 g 76 /min 99 % 99 % 122 mm[Hg] 78 mm[Hg] LOIS Ridley [place] - [facility] 4 14:25:02 Date Recorded Body height Body mass index (BMI) Body mass index (BMI) Percentile per age and sex Body weight Heart rate Oxygen saturation Oxygen saturation in Arterial blood by Pulse oximetry Systolic blood pressure Diastolic blood pressure Provider Name and Address Organization Details Last Updated DateTime 4 185.42 cm 38.1 kg/m2 98 % 695199. 48 g 87 /min 97 % 97 % 122 mm[Hg] 72 mm[Hg] Alma Hollingsworth [place] - [facility] 4 11:11:30 Date Recorded Body height Body mass index (BMI) Percentile per age and sex Body mass index (BMI) Body weight Heart rate Oxygen saturation Oxygen saturation in Arterial blood by Pulse oximetry Systolic blood pressure Diastolic blood pressure Provider Name and Address Organization Details Last Updated DateTime 5 185.42 cm 91 % 29 kg/m2 21047.6 8 g 71 /min 98 % 98 % 124 mm[Hg] 66 mm[Hg] Alma Hollingsworth MA [facility] 12:15:03 Social History Question Answer Notes LastModified by Organizat ion Details LastModified Time Tobacco Smoking Status Never Smoker AnitaLOIS Lindsey, [facility] 04/03/2024 14:23:15 Do You Have An Advance Directive? No Information not available 05/08/2024 What Is Your Level Of Alcohol Consumption? None [email or web address] Information not available 04/03/2024 Are You Blind Or Do You Have Difficulty Seeing? No Information not available 05/08/2024 In The 14 Days Before Symptom Onset, Have You Had Close Contact With A Laboratory-confir med COVID-19 While That Case Was Ill? No Information not available 05/08/2024 In The 14 Days Before Symptom Onset, Have You Had Close Contact With A Person Who Is Under Investigation For COVID-19 While That Person Was Ill? No Information not available 05/08/2024 Have You Been To An Area Known To Be High Risk For COVID-19? No Information not available 05/08/2024 Are You Deaf Or Do You Have Serious Difficulty Hearing? No Information not available 05/08/2024 What Type Of Diet Are You Following? REGULAR Information not available 05/08/2024 Are There Any Guns Present In Your Home? No Information not available 05/08/2024 What Was The Date Of Your Most Recent Tobacco Screening? 10/26/2024 Never Smoker Information not available 10/26/2024 Do You Use Your Seat Belt Or Car Seat Routinely? Yes Information not available 05/08/2024 Do You Have Smoke And Carbon Monoxide Detectors In Your Home? Yes Information not available 05/08/2024 Do You Feel Stressed (tense, Restless, Nervous, Or Anxious, Or Unable To Sleep At Night)? [id number] Information not available 05/08/2024 Do You Use Any Illicit Or Recreational Drugs? No Information not available 10/26/2024 Do You Use Sunscreen Routinely? Yes Information not available 05/08/2024 Has Tobacco Cessation Counseling Been Provided? No Information not available 10/26/2024 Do You Or Have You Ever Used Any Other Forms Of Tobacco Or Nicotine? No Information not available 10/26/2024 Sex: Female Functional Status Question Answer Note LastModified by Organization D etails LastModified Time Are you able to care for yourself? Yes Information n ot available 05/08/2024 What is your exercise level? None Information not available 05/08/2024 Mental Status None recorded. Family History Relationship Description Onset Age of this Age Resolved Age Notes LastModified by Organization Details LastModified Time Sister Depressive disorder [email or web address] Not available 03/12 14:26:04 Sister Migraine [email or web address] Not availa ble 04/03/2024 14:26:50 Mother Diabetes mellitus [email or web address] Not available 03/12 14:26:29 Mother Disorder of thyroid gland [email or web address] Not available 03/12 14:26:36 Mother Hypertensive disorder [email or web address] Not available 03/12 14:26:43 Father Diabetes mellitus [email or web address] Not available 03/12 14:26:29 Medical History Condition Response Coronary Artery Disease N Other N Atrial Fibrillation N High Blood Pressure N Depression N COPD N Blood Clots N Anxiety Disorder N Muscle, Joint, or Bone Problems N Acid Reflux (GERD) N Cancer N Stroke N High Cholesterol N Liver Disease N Headaches N Kidney or Bladder Problems N Thyroid Problems N GI Problems N Skin Problems N Anemia N Heart Attack (CT) N Diabetes N Seizures/Epilepsy N Asthma N Allergies N Hepatitis N Heart Failure N Osteoporosis N Gynecological History Statement/Question Response Menses Monthly N Duration of Flow (days) 5 Date of LMP 03/18/2024 LMP Approximate Obstetrics History GPAL:G 0 P 0 0 0 0 Immunizations Vaccine Type Date Status Note Provider Nam luis and Address Organization Details Recorded Time Hib, unspecified formulation 4 completed LOIS [place], [place] [facility] 04/03/2024 14:16:26 IPV 3 completed Anita Sandra R[place] [facility] 04/03/2024 14:16:26 MMR 9 completed Anita Sandra, [place] [facility] 04/03/2024 14:16:26 MMR 9 completed Anita Sandra, [place] [facility] 04/03/2024 14:16:26 COVID-19, mRNA, LNP-S, PF, 30 mcg/0.3 mL dose 1 completed Anita Sandra, [place] [facility] 04/03/2024 14:16:26 COVID-19, mRNA, LNP-S, PF, 30 mcg/0.3 mL dose, jerod-sucrose 2 completed Anita Sandra [place] [facility] 04/03/2024 14:16:26 pneumococcal conjugate PCV 7 4 completed Anita Sanrda [place] [facility] 04/03/2024 14:16:26 Tdap 3 completed Anita Sandra R[place] [facility] 04/03/2024 14:16:26 varicella 9 completed Anita Sandra [place] [facility] 04/03/2024 14:16:26 varicella 9 completed Anita Sandra [place] [facility] 04/03/2024 14:16:26 SAvD-Has-GSD 9 completed Anita Sandra, [place] [facility] 04/03/2024 14:16:26 Hep B, adolescent or pediatric 9 completed Anita Sandra [place] [facility] 04/03/2024 14:16:26 Hep B, adolescent or pediatric 4 completed Anita [place] [facility] 04/03/2024 14:16:26 Hep A, ped/adol, 2 dose 3 completed Anita Sandra [place] [facility] 04/03/2024 14:16:26 Hep A, pediatric, unspecified formulation 9 completed Anita Sandra, [place] [facility] 04/03/2024 14:16:26 meningococcal MCV4P 2 completed Anita Sandra, [place] [facility] 04/03/2024 14:16:26 meningococcal MCV4P 5 completed Anita Sandra, [place] [facility] 04/03/2024 14:16:26 DTaP-Hep B-IPV 4 completed Anita Sandra, [place] [facility] 04/03/2024 14:16:26 DTaP-Hep B-IPV 9 completed Anita Sandra, [place] [facility] 04/03/2024 14:16:26 Past Encounters Encounter ID Performer Location Encounter Start Date Encounter Closed Date Diagnosis/Indication Diagnosis SNOMED-CT Code Diagnosis ICD10 Code Diagnosis Note [id number] Maxine Swanson (Peds) [address] [place] [address] 07/25/2015 09:44:44 07/30/2015 12:37:50 [id number] [facility] [place] [address] [place] [address] 04/03/2024 13:55:43 04/03/2024 15:11:21 Obesity 429375207 E66.8 Weight gain 4118693 R63. 5 Gynecologi c examination 78724521 Z01.419 Screening for cardiovascular system disease 834340291 Z13.6 [id number] [facility] [place] [address] [place] [address] 05/08/2024 10:52:55 05/08/2024 12:32:29 Microcytic hypochromic anemia 74795520 D50.[id number] [facility] [place] [address] [place] [address] 10/26/2024 11:56:18 10/26/2024 12:49:28 Body mass index 25-29 - overweight 391056246 Z68.29 Overweight 109429770 E66 .3 History of bariatric surgical procedure 643237892 Z98.84 Abnormal weight gain 161 178263 R63.5 Health Concerns Section Related Observation LastModified by Organization Detai ls LastModified Time None Recorded Concern Status LastModified by Organization Details LastModified Time None Recorded Advance Directives Directive N: Payers Encounter Date Sequence Insurance Name Policy Number Policy Macias Covered Member ID Macias Member ID Guarantor Name 07/25/2015 SLIDING FEE SCHEDULE - DISCOUNT Grace Irwin 04/03/2024 1 [facility] [id number] [facility] [id number] Grace Gayle 04/03/2024 2 [facility] [id number] Francois Gayle [id number] Grace Irwin 05/08/2024 1 [employer] [id number] [facility] [id number] Grace Gayle 05/08/2024 2 [facility] [id number] Francois Gayle [id number] Grace Irwin 10/26/2024 1 [facility] [id number] [facility] [id number] Grace Gayle 10/26/2024 2 [facility] [id number] Francois Gayle [id number] Grace Gayle Notes Date Note Type Note Provider Name and Address Organization Details Recorded Time 04/03/2024 text/html 89-year-old new patient brought in with mother she has had 100 lb weight meds nothing currently allergies none surgeries none family history of PCOS believe that there was an aunt with some type of cancer at age 27 socially does not smoke drink vape 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 play sports anymore had been running 4-5 miles a day not doing that anymore diets poor had some blood work I believe by the sports doctor and that was allegedly negative periods heavy and irregular Tarun Aldridge MD Attn: Accounting,[address] [facility], [place], [address], [facility] 04/08/2024 13:04:11 05/08/2024 text/html she feels good your blood work showed a microcytic anemia and she has started some iron insulin level was a little bit high Tarun Aldridge MD Attn: Accounting,[address] [facility], [place], [address], [facility] 05/11/2024 21:14:39 10/26/2024 text/html went [facility] and had bariatric surgery I believe a gastric sleeve Tarun Aldridge MD Attn: Accounting,[address] [facility], [place], [address], [facility] 10/26/2024 23:16:44 OBGyn Episode No OBEpisode recorded.
--- OUTSIDE RECORDS SUMMARY | 2025-01-10 09:00 | XMS_ITS | Continuity of Care Document ---
Author Organization [facility] Address [address] [place] [address] Phone Care Team Providers Care Supervisor Major Appliance Assembly Name Role Phone Unavailable Unavailable Unavailable Ovi RN, Nilda Unavailable Unavailable Procedures Procedure Date SCREENING TEST OF VISUAL ACUITY, QUANTIT ATIVE, BILATERAL OFFICE/OUTPATIENT VISIT, NEW Advance Directives Directive Yes / No Effective Date File Name No Information Encounters Encounter Description Practice Location Reason(s) For Visit Diagnoses Date Provider Providers Copied on Encounter [facility], [address], [place], [place], [address] , tel:[phone] [facility] No Information 0 No Information Consulting Provider: Nilda Dior, [address], [place], [address]. tel:[phone] OFFICE/OUTPA TIENT VISIT, NEW [facility], [address], [place], [place], [address] , tel:[phone] [facility] sports pe (chief complaint) BMI pediatric, 5th percentile to less than 85% for ageEncounter for screening for eye and ear disordersEncounte r for examination for participation in sport 0 Mary Salcedo. [address], [place], [place], [address], [place]. tel:[phone] Referring Provider: Raquel Richard, [address], [place], [address]. tel:[phone] Family History Family Member Type Diagnosis Age At Onset No Information Payers Payer name Insurance type Covered republican ID Authoraraceli dow(s) [employer] CI [id number] Social History Type Description Quantity Date Captured Comments Sex Female Smoking Status No Information Chief Complaint And Reason For Visit No Information Reason For Referral Reason For Referral No Information History Of Present Illness Encounter Date Complaint History Of Prese nt Illness sports pe 15 year old on M edical van for Sports PE at [facility]. Covid Testing done prior to visit . Eats well, good variety. 11th grade, [employer] not going well at all. Playing basketball. [facility] form completed and reviewed. Functional Status Date Functional Assessmen t No Information Instructions Date Instruction Additional Infor corinneion Food education, guid ance, and counseling Related to Body mass index [BMI] pediatric, 5th percentile to less than 85th percentile for age Discussed nutrition and physical activity Related to Encounter for examination for participation in sport Food education, guid ance, and counseling Related to Body mass index [BMI] pediatric, 5th percentile to less than 85th percentile for age Assessments Type Assessment Date No Information Patient Care Teams Name Effective Dates (start - stop) Status Members No Information
--- OUTSIDE RECORDS SUMMARY | 2025-01-10 09:00 | XMS_ITS | Clinical Summary ---
Author Organization [facility] Address [address] [facility] [place] [address] Care Team Providers Care Fence Installer Helper Name Role Phone [facility] Primary Care Provid er Unavailable Source Comments [facility],non-owned Affiliates and Associated Physician Practices is amultiple site organization consisting of ambulatory clinics and hospital sitesin [place], [place], [place] and [place]. This disclosure is being madepursuant to the Care Everywhere program and may not contain all information available regarding this patient. Last updated 18.[facility] Allergies No known active allergies Medications Be aware that medications may not be up to date on this document. Always verify current medications with the patient. No known medications Active Problems No known active problems Social History Tobacco Use Types Packs/Day Years Used Date Smoking Tobacco: Never Smokeless Tobacco: Never Alcohol Use Standard Drinks/Week Comments No 0 (1 standard drink = 0.6 oz pur e alcohol) Sex and Gender Information Value Date Recorded Sex Assigned at Not on file Gender Identity Not on file Sexual Orientation Not on file Last Filed Vital Signs Vital Sign Reading Time Taken Comments Blood Pressure 101/68 04/23/2021 11:40 PM CDT Pulse 56 04/23/2021 11:40 PM CDT Temperature 36.9 C (98.4 F) 04/23/2021 11:40 PM CDT Respiratory Rate 18 04/23/2021 11:40 PM CDT Oxygen Saturation 98% 04/23/2021 10:09 PM CDT Inhaled Oxygen Concentration - - Weight 74.8 kg (165 lb) 04/23/2021 10:14 PM CDT Height 185.4 cm (6' 1 ) 04/23/2021 10:09 PM CDT Body Mass Index 21.77 04/23/2021 10:09 PM CDT Plan of Treatment Health Maintenance Due Date Last Done Comments HIV SCREENING 2019 HPV VACCINE (1 - 3-dose series) 2019 CHLAMYDIA/GONORRHEA SCREENING 2020 MENINGOCOCCAL (Group B) VACC INE SHARED DECISION-MAKING (1 of 2 - Standard) 2020 HEPATITIS C SCREENING 05/02/2022 DTAP/TDAP/TD VACCINES (1 - Tdap) 2023 HEPATITIS B VACCINE (1 of 3 - 19+ 3-dose series) 2023 COVID-19 VACCINE (1 - 2023-2 5 season) 2024 INFLUENZA VACCINE (#1) 2024 DEPRESSION SCREENING 10/11/2024 ZOSTER VACCINE (1 of 2) 2054 HIB VACCINE Aged Out No longer eligi ble based on patient's age to complete this topic MENINGOCOCCAL GROUPS A/C/Y/W VACCINE Aged Out No longer eligible b ased on patient's age to complete this topic PNEUMOCOCCAL VACCINE Aged Out No long er eligible based on patient's age to complete this topic Care Teams Fence Installer Helper Relationship Specialty Start Date End Date [facility], [facility] Update Information PCP - General 04/29/21
--- NOTE | 2025-01-10 09:12 | ED_ITS ---
HPI - General Adult General Chief complaint: Extremity Injury, Upper Stated complaint: R thumb nail broken Time Seen by Provider: 01/10/25 08:49 History of Present Illness HPI narrative: 19-year-old female presents emergency to the department for injury to her left thumbnail. Patient does have long nails. Patient caught her left thumbnail on a weight and it lifted up the entire nail. Patient denies any crush injury Related Data Home Medications ?Medication ?Instructions ?Recorded ?Confirmed ?Last Taken ?Type No Home Medications 05/30/24 05/30/24 Unknown History Allergies Allergy/AdvReac Type Severity Reaction Status Date / Time No Known Allergies Allergy Verified 05/30/24 14:48 PMF Family History Family History Mother Hypertension Diabetes mellitus PCOS (polycystic ovarian syndrome) Social History Social History Smoking status: Never smoker Alcohol intake: never Substance use: never Substance use type: does not use Living arrangements: with family Occupation/Education: student Course Vital Signs Vital signs: Vital Signs Temperature 98.0 F 01/10/25 08:52 Pulse Rate 74 01/10/25 08:52 Respiratory Rate 16 01/10/25 08:52 Blood Pressure 136/74 01/10/25 08:52 Pulse Oximetry 99 01/10/25 08:52 Oxygen Delivery Room Air 01/10/25 08:52 Temperature 98.0 F 01/10/25 08:52 Pulse Rate 61 01/10/25 10:38 Respiratory Rate 15 01/10/25 10:38 Blood Pressure 106/74 01/10/25 10:38 Pulse Oximetry 100 01/10/25 10:38 Oxygen Delivery Room Air 01/10/25 08:52 Procedures Nerve Block Nerve Block 1: Time out performed: Yes Local Anesthetic: lidocaine 1% Amount of anesthesia used (mL): 5 Side: right Nerve Blocks: digital (right thumb) Procedure Successful: Yes Patient Tolerated Procedure: well and no complications Medical Decision Making MDM Narrative Medical decision making narrative: 19-year-old female presents emergency department for evaluation for a right thumbnail injury. Patient did have a digital block to that right thumb and nail was reapproximated underneath the nail bed and this was fixed in place with Oleksandr mabond. Wound was then dressed and clean gauze and placed in a finger splint. Nail was trimmed down to size. Patient was then provided follow-up with Plastic surgery. All questions concerns were addressed. Differential Diagnosis Differential Diagnosis: Nail avulsion, thumb fracture, laceration Vital Signs Vital Signs: Vital Signs Temperature 98.0 F 01/10/25 08:52 Pulse Rate 74 01/10/25 08:52 Respiratory Rate 16 01/10/25 08:52 Blood Pressure 136/74 01/10/25 08:52 Pulse Oximetry 99 01/10/25 08:52 Oxygen Delivery Room Air 01/10/25 08:52 Temperature 98.0 F 01/10/25 08:52 Pulse Rate 61 01/10/25 10:38 Respiratory Rate 15 01/10/25 10:38 Blood Pressure 106/74 01/10/25 10:38 Pulse Oximetry 100 01/10/25 10:38 Oxygen Delivery Room Air 01/10/25 08:52 Discharge Plan Discharge Clinical Impression: Avulsed fingernail Patient Disposition: Home, Self-Care Condition: Stable Instructions: Antibiotic Form, Nail Avulsion (ED) Additional Instructions: Wound care as directed. Finger splint for fingernail protection. Have close follow-up with Plastic/Hand surgery. If you have any worsening symptoms then please call or return to the emergency department. Patient Language: [place] Prescriptions: No Action No Home Medications Follow-up/Referrals: Vaibhav German MD [Physician] - Luis Carlos,MD Jose [Primary Care Provider] -
--- OUTSIDE RECORDS SUMMARY | 2025-01-10 09:16 | XMS_ITS | Data Portability ---
Author Organization [facility] Address [address] [place] [address] [place] [address] Assessment Encounter Date Assessment Date Assessment LastModified by Organization Details LastModified Time 04/23/2022 04/23/2022 Annual gynecological exam performed. Patient will come back in a year unless there are new symptoms. [facility] Not available 04/23/2022 13:57:27 Plan of Treatment Reminders Order Date Submit Date Provider Last Modified By Organization Details Last Modified Time Details Appointments None recorded . Lab pregnanc y test, urine 2022 023 [facility], [address], [address], [place], [address], 3 12:57:50 pregnanc y test, urine 2021 022 [facility], [facility] [address], [place], [address], 11:08:39 beta-HCG , quantita tive, serum or plasma 2021 022 [facility] (Lab), [address], [place], [address], 02:37:00 Referral None recorded . Procedures None recorded . Surgeries None recorded . Imaging None recorded . Medication Orders None recorded . Patient TargetsNo targets recorded. Patient InstructionsNo instructions recorded. Reason for Referral None Reported. Results Created Date Observation Date Name Description Value Unit Range Abnormal Flag Note LastModifiedBy Organization Detail LastModifiedTime 05/20/20 22 05/20/2022 BHCG, QUANT ITATI VE B-HCG <0.2 mIU/m L This assay was perfo rmed using [employer] ratio n reage nts and test kits. Value s obtai kaushal with other assay metho ds or kits canno t be used inter gómez eably . Refer ence Range s: Non-p regna nt, preme nopau gibson women : 0.0-5 .3 mIU/m L Postm enopa usal women : 0.0-7 .0 mIU/m L Ladi l Pregn noemi: Gesta doretha l Age bHCG Conc. - mIU/m L 3 Weeks 5.8 - 71.7 4 Weeks 9.5 - 750 5 Weeks 217-7 138 6 Weeks 158 - 31,79 5 7 Weeks 3,697 - 162,5 63 8 Weeks 32,06 5 - 149,5 71 9 Weeks 63,80 3 - 151,4 10 10 Weeks 46,50 9 - 186,9 77 12 Weeks 27,83 2 - 210,6 12 14 Weeks 13,95 0 - 62,53 0 15 Weeks 12,03 9 - 70,97 1 16 Weeks 9,040 - 56,45 1 17 Weeks 8,175 - 55,86 8 18 Weeks 8,099 - 58,17 6 Not Available [facility] [address] [place], [address], 05/21/2022 02:37:00 05/21/20 22 05/21/2022 pregn noemi test, urine HCG negati ve Not Available [facility] [address], [place], [address], 05/21/2022 11:08:33 01/26/20 23 01/25/2023 pregn noemi test, urine HCG negati ve Not Available [facility] [address], [place], [address], 01/25/2023 12:57:43 Result Notes None recorded. Problems No Known Problems Procedures Surgical History Date Name Laterality Status Provider Name and Address Organization Details Recorded Time 3 Nexplanon Removal completed ANGELINA Dougherty [address], [place], [address], [facility] 01/25/2023 13:40:14 2 Nexplanon Insert completed ANGELINA Dougherty [address], [place], [address], [facility] 05/21/2022 11:22:39 Imaging Results None recorded. Procedure Notes None recorded. Medical Equipment None Reported. Allergies No known drug allergies Medications Name Sig Start Date Stop Date Status Note LastModified by Organization Details LastModified Time spironolacton e 100 mg tablet 04/23 completed Not Available Not Available Not Available amoxicillin 875 mg tablet TAKE 1 TABLET BY MOUTH TWICE DAILY 10/28 completed Not Available Not Available Not Available cephalexin 500 mg capsule 01/25 completed Not Available Not Available Not Available ibuprofen 600 mg tablet TAKE 1 TABLET BY MOUTH THREE TIMES DAILY WITH FOOD 01/25 completed Not Available Not Available Not Available azithromycin 500 mg tablet TAKE 1 TABLET BY MOUTH EVERY DAY FOR 5 DAYS 10/28 completed Not Available Not Available Not Available Onexton 1.2 % (1 % base)-3.75 % topical gel with pump active Not Available Not Available No t Available Amzeeq 4 % topical foam active Not Available Not Available Not Available Vitals Date Recorded Body height Body mass index (BMI) Percentile per age and sex Body mass index (BMI) Body weight Systolic blood pressure Diastolic blood pressure Provider Name and Address Organization Details Last Updated DateTime 2 185.42 cm 71 % 23.3 kg/m2 52053.1 3 g 127 mm[Hg] 73 mm[Hg] Carmel garrido [facility] 2 13:58:03 Date Recorded Body height Body mass index (BMI) Body mass index (BMI) Percentile per age and sex Body weight Systolic blood pressure Diastolic blood pressure Provider Name and Address Organization Details Last Updated DateTime 2 185.42 cm 23.5 kg/m2 73 % 30510.4 4 g 119 mm[Hg] 69 mm[Hg] Carmel garrido [facility] 2 11:01:38 Date Recorded Body height Body mass index (BMI) Percentile per age and sex Body mass index (BMI) Body weight Systolic blood pressure Diastolic blood pressure Provider Name and Address Organization Details Last Updated DateTime 2 185.42 cm 73 % 23.5 kg/m2 49568.4 4 g 105 mm[Hg] 68 mm[Hg] Carmel garrido [facility] 2 10:46:59 Date Recorded Body height Body mass index (BMI) Body mass index (BMI) Percentile per age and sex Body weight Systolic blood pressure Diastolic blood pressure Provider Name and Address Organization Details Last Updated DateTime 3 185.42 cm 26.1 kg/m2 86 % 56424.8 5 g 124 mm[Hg] 75 mm[Hg] Carmel garrido [facility] 3 16:46:11 Date Recorded Body height Provider Name an d Address Organization Details Last Updated DateTime 01/25/2023 185.42 cm Carmel Ayala [facility] 01/25/2023 12:42:19 Social History Question Answer Notes LastModified by Organizat ion Details LastModified Time Do You Have An Advance Directive? No Information n ot available 04/23/2022 What Is Your Level Of Alcohol Consumption? None Information not available 04/23/2022 Are You Blind Or Do You Have Difficulty Seeing? No Information n ot available 04/23/2022 What Is Your Level Of Caffeine Consumption? Occasional Information not available 04/23/2022 How Much Tobacco Do You Chew? None Information not available 04/23/2022 In The 14 Days Before Symptom Onset, Have You Had Close Contact With A Laboratory-confirm ed COVID-19 While That Case Was Ill? No Information n ot available 04/23/2022 In The 14 Days Before Symptom Onset, Have You Had Close Contact With A Person Who Is Under Investigation For COVID-19 While That Person Was Ill? No Information not available 04/23/2022 Have You Been To An Area Known To Be High Risk For COVID-19? No Information not available 04/23/2022 Are You Deaf Or Do You Have Serious Difficulty Hearing? No Information not available 04/23/2022 What Type Of Diet Are You Following? REGULAR Information n ot available 04/23/2022 What Is The Highest Grade Or Level Of School You Have Completed Or The Highest Degree You Have Received? [id number] Information not available 04/23/2022 What Is Your Occupation? Student Information not available 04/23/2022 Are There Any Guns Present In Your Home? No Information not available 04/23/2022 Do You Use Protection During Sex? Usually Information not available 04/23/2022 Do You Use Your Seat Belt Or Car Seat Routinely? Yes Information not available 04/23/2022 Do You Have Smoke And Carbon Monoxide Detectors In Your Home? Yes Information not available 04/23/2022 How Much Tobacco Do You Smoke? No Information not available 04/23/2022 Do You Feel Stressed (tense, Restless, Nervous, Or Anxious, Or Unable To Sleep At Night)? [id number] Information not available 04/23/2022 Do You Use Any Illicit Or Recreational Drugs? No Information not available 04/23/2022 Do You Use Sunscreen Routinely? No Information not available 04/23/2022 Have You Used IV Drugs? No Information not available 04/23/2022 Sex: Unknown Functional Status Question Answer Note LastModified by Organizat ion Details LastModified Time Do you have difficulty walking or climbing stairs? No [email or web address] Information not available 01/25/2023 Are you able to walk? YESWOREST Information not available 04/23/2022 Are you able to care for yourself? Yes [email or web address] Information not available 01/25/2023 Do you have difficulty dressing or bathing? No [email or web address] Information not available 01/25/2023 What is your exercise level? Heavy Information not available 04/23/2022 Mental Status None recorded. Family History Relationship Description Onset Age of this Age Resolved Age Notes LastModified by Organization Details LastModified Time Maternal Aunt Substance abuse [email or web address] Not available 10/11 16:46:15 Maternal Aunt Malignant tumor of ovary [email or web address] Not available 10/11 16:46:15 Maternal Aunt Malignant tumor of ovary [email or web address] Not available 2022 12:25:21 Maternal Aunt Substance abuse [email or web address] Not available 2022 12:25:22 Maternal Grandmother Depressive disorder [email or web address] Not available 10/11 16:46:15 Maternal Grandmother Malignant tumor of ovary [email or web address] Not available 10/11 16:46:15 Maternal Grandmother Disorder of thyroid gland [email or web address] Not available 10/11 16:46:15 Maternal Grandmother Malignant tumor of ovary [email or web address] Not available 2022 12:25:22 Maternal Grandmother Disorder of thyroid gland [email or web address] Not available 2022 12:25:22 Maternal Grandmother Depressive disorder [email or web address] Not available 2022 12:25:22 Mother Diabetes mellitus [email or web address] Not available 10/11 16:46:15 Mother High risk [email or web address] Not available 10/11 16:46:15 Mother High risk [email or web address] Not available 2022 12:25:22 Mother Diabetes mellitus Not available 2022 12:25:22 Maternal Grandfather Disorder of thyroid gland [email or web address] Not available 10/11 16:46:15 Maternal Grandfather Substance abuse [email or web address] Not available 10/11 16:46:15 Maternal Grandfather Disorder of thyroid gland [email or web address] Not available 2022 12:25:22 Maternal Grandfather Substance abuse [email or web address] Not available 2022 12:25:22 Sister Anemia [email or web address] Not availabl e 10/28/2022 16:46:15 Sister Anemia [email or web address] Not available 01/25/2023 12:25:22 Unspecified Relation Family history unknown [email or web address] Not available 10/11 16:46:15 Medical History Condition Response Allergies (Food, seasonal, environmental ) N Other N Breast Cancer N Drug/Latex Allergies/Reactions N Blood Transfusion N Dermatologic Disorders N Lung Disease N Defects or Inherited Disease N Breast Problem N Gestational Diabetes N Hematologic disorders N Anesthesia Complications N History of STI N Deep Vein Thrombosis N Polycystic ovary syndrome N Anxiety Disorder N Autoimmune disease N Arthritis N Infertility N Polyps N Acid Reflux (GERD) N History of abnormal pap N Cancer N Stroke N Varicosities N Neurologic/Epilepsy N Endometriosis N High Cholesterol N Headaches N Fibromyalgia N Kidney Disease N Heart Problems N Kidney or Bladder Problems N Thyroid Problems N GI Problems N Eating Disorder N Anemia N Art (IVF or FET) N Psychiatric Illness N Ovarian Cancer N Diabetes N Pulmonary (TB, Asthma) N Hepatitis/Liver Disease N No Past Medical History N Eczema N Urinary Tract Infection N Abuse/Domestic Violence N Asthma N Trauma/Violence N Depression/ depression N Heart Disease N Pre-Eclampsia N Hypertension N Osteoporosis N Thrombophilias N Gynecological History Statement/Question Response Flow Moderate Date of LMP 07/17/2022 N STIs/STDs N Was last menstrual period normal Y HPV Vaccine Y Current Control Method Implant Sexually Active? Y Age of first menstrual cycle 11 Sexual Problems? N Desired Control Method Multiple Me thods LMP Definite N Obstetrics History GPAL:G 0 P 0 0 0 0 Past Encounters Encounter ID Performer Location Encounter Start Date Encounter Closed Date Diagnosis/Indication Diagnosis SNOMED-CT Code Diagnosis ICD10 Code Diagnosis Note [id number] ANGELINA Dougehrty [facility] [address] [address] 04/23/2022 13:48:38 04/23/2022 14:48:01 Gynecologic examination 42134735 Z01.419 Take Calcium with Vitamin D 1200mg daily if not receiving in daily diet. It is strongly advised to have an annual flu shot and up can obtain at most pharmacies . If you have not had a TDap shot in the last 10 years you should obtain one as well. Discussed with patient & provided with informatio n regarding Gardisil vaccine to prevent the 4 strains for HPV that cause cervical cancer. Encourage safe sexual practices, to use condoms and limit partners if not already in a monogamous relationsh ip. Do monthly self breast exams. BRCA testing is now available for patients with strong genetic history of female cancer. If interested contact the office. Engage in daily exercise of low impact aerobic exercise 45-60 minutes 4-5 times weekly. Avoid tobacco, illicit drugs, and alcohol. This lifestyle behavior pattern will lead to less health conditions and longer life span. If BMI greater than 25 weight watchers or dietary consult advised. Pap smear is not recommende d prior to the age of 21. If you have any concerns, pelvic, or vaginal problems we can discuss testing. Patient received above instructio ns, and questions have been answered. If you have any questions please call or respond to this email. Patient was made aware of the patient portal and may obtain a paper copy of today's plan if desired.WW EUsing condoms for control.Sh e has a scholarshi p to [employer] for basketball , starting in May! Would like controlDen ies any medical issues or problemsDi scussed all control options in depth and pt is interested in Nexplanon. Discussed all risks and benefits including irregular unschedule d bleeding. Pt verbalized understand ing and would like to proceed. She is aware that she needs to call us on the 1st day of her period to schedule placement. We discussed need to insert on days 1-5 of next period. [place] leaving out [place] the [place] days. She will not be back until after her next period.We discussed she will abstain after her next period until she is back in the [facility], once she is back will do bhcg, then can insert nexplanon on the next day following negative hcg. No pap needed until 21RTC for nexplanon Contracept ion care management 021295588 Z30.9 [id number] ANGELINA Dougherty [facility] [address] [address] 05/21/2022 10:37:52 05/21/2022 11:28:00 Contraception care management 058320043 Z30.9 Insertion of subcutaneous contraceptive 919794083 Z30.9 Patient is here currently on her menses. She was given all the r/b/a of placement of the Nexplanon device and has signed the consent. She is fully aware of all possible side effects of the device and has decided to move forward with placement. Insertion site was cleansed with betadine and 3cc lidocaine used for anesthesia . Device was placed in the left arm per usual fashion w/o complicati on and patient instructed to f/u in one month or earlier if there are any si/sx of infection or hypersensi tivity at the insertion siteRTC in 1 month for f/u [id number] ANGELINA Dougherty [facility] [address] [address] 05/25/2022 10:40:24 05/25/2022 11:03:58 Contraception care management 239072049 Z30.9 Nexplanon palpated in normal appearing position. No signs of infection. Some minor bruising (to be expected). Normal exam.Steri -strips re-applied . Informed patient to avoid working out/heavy lifting/ge tting hit in this area for the next 3 days. To leave steri-stri ps in place for the next 1-2 days.To call the office/ED visit with any signs of infection, bleeding, ect.RTC for med check in 1 month Time spent in visit is a total of 20 mins with at least 50% of visit consisting of counseling and review of plan of care. [id number] ANGELINA Dougherty [facility] [address] [address] 10/28/2022 16:39:00 10/28/2022 17:00:34 Contraception care management 120948939 Z30.9 All BC options discussed in-depthDe boby nexplanon removal and Kyleena IUD insertionS he will schedule to return for nexplanon removal and IUD insertion She has been counseled on all of the r/b/a of placement of an intrauteri ne device that include but are not limited to uterine perforatio n, injury to cervix, vagina, bladder, and bowel.Risk s of bleeding due to injury or increased irregular bleeding due to progestin effect of the device. Risks of infection would be increased within the first 21 days of placement with concommita nt cervicitis . She understand s that the device will need to be removed in this instance due to increased risk of Pelvic inflammato ry disease. Patient is aware she is at higher risk for STD and if contracted she could lose her fertility. Pt is aware that if occurs that she should contact office immediatel y to rule out ectopic which could be life threatenin g. IUD will also need to be removed and this could cause miscarriag e. Patient also informed that in the event her strings are absent or embedded at the time of removal she may need to have the IUD surgically removed. Time spent in visit is a total of 15 mins with at least 50% of visit consisting of counseling and review of plan of care. [id number] ANGELINA Dougherty [facility] [address] [address] 01/25/2023 12:25:17 01/25/2023 13:44:25 Screening procedure 14460201 Z13.9 Removal of subcutaneous contraceptive 560392284 Z30.46 Removal site was cleansed with betadine and 3cc of lidocaine used for anesthesia . Device was removed in normal fashion without difficulty . Steri stips and pressure bandage placed. Declines BC, desires condom usePrecaut ions discussed, RTC in 1 year for WWE or sooner if needed Health Concerns Section Related Observation LastModified by Organization Detai ls LastModified Time None Recorded Concern Status LastModified by Organization Details LastModified Time None Recorded Advance Directives Directive N: Payers Encounter Date Sequence Insurance Name Policy Number Policy Macias Covered Member ID Macias Member ID Guarantor Name 04/23/2022 2 [facility] [id number] Teodoro Gayle [id number] [facility] [place] 04/23/2022 1 [facility] [id number] Karoline Smith Jaret Gayle [id number] [facility] [place] 05/21/2022 2 [facility] [id number] Teodorojorden Gayle [id number] [facility] [place] 05/21/2022 1 [facility] [id number] Karoline Sarah Jaret Gayle [id number] [facility] [place] 05/25/2022 2 [facility] [id number] Teodorojorden Gayle [id number] [facility] [place] 05/25/2022 1 [facility] [id number] Karoline Sarah Jaret Gayle [id number] Karoline [facility] 10/28/2022 1 [facility] [id number] Karoline Gayle [id number] Karoline [place] 10/28/2022 3 [facility] [id number] Teodoro Gayle [id number] Karoline [place] 01/25/2023 1 R [id number] Karoline Gayle [id number] Karoline [place] 01/25/2023 3 [facility] [id number] Teodoro Gayle [id number] Karoline [place] Notes Date Note Type Note Provider Name and Address Organization Details Recorded Time 04/23/2022 text/html Annual GYNReport ed bypatient.Menstrual cycle:Normal menses Urinary symptoms:No hematuria; No incontinence Vulva:No genital lesion Vagina:Normal vaginal discharge Breast:No breast pain; No breast lump; No nipple discharge Current Contraception:Condoms Sexual complaints:No sexual complaints; No pain during intercourse; Normal libido Menopausal Symptoms:No menopausal symptoms; Normal vaginal lubrication Psychological symptoms:No depression; No anxiety; No PMDD Preventive measures:Encourage self breast examination; Encourage regular exercise; Encourage no tobacco use; Encourage regular mammograms starting age 40 ANGELINA Dougherty [address], [place], [address], [facility] 04/23/2022 14:32:10 05/21/2022 text/html Patient presents for nexplanon insertionbhcg (-) , has abstained x 2 weeksDenies any medical issues ANGELINA Dougherty [address], [place], [address], [facility] 05/21/2022 11:23:33 05/25/2022 text/html 17yo [id number] for nexplanon f/uNexplanon inserted 05/21, she was playing basketball the next day and noticed some bleeding from the site and some tenderness.No bleeding now, no pains, no redness, or irritation. ANGELINA Dougherty [address], [place], [address], [facility] 05/25/2022 11:02:55 10/28/2022 text/html 17yoPresents for BC consultNexplanon inserted 05/21/22Since nexplanon insertion, has had weight gain of around 20lbsShe plays college basketball, intense training/exercise for thisNo diet changes recently ANGELINA Dougherty [address], [place], [address], [facility] 10/28/2022 17:00:57 01/25/2023 text/html 17yopresents for nexplanon removal - wants to use condoms moving forward ANGELINA Dougherty [address], [place], [address], [facility] 01/25/2023 13:41:25 OBGyn Episode No OBEpisode recorded.
--- OUTSIDE RECORDS SUMMARY | 2025-01-10 09:17 | XMS_ITS | Continuity of Care Document ---
Author Organization [facility] Address [address] [place] [address] Phone Care Team Providers Care Sales Representative [employer] Name Role Phone Unavailable Unavailable Unavailable Ovi RN, Nilda Unavailable Unavailable Procedures Procedure Date SCREENING TEST OF VISUAL ACUITY, QUANTIT ATIVE, BILATERAL OFFICE/OUTPATIENT VISIT, NEW Advance Directives Directive Yes / No Effective Date File Name No Information Encounters Encounter Description Practice Location Reason(s) For Visit Diagnoses Date Provider Providers Copied on Encounter [facility], [address], [place], [place], [id number] , tel:[phone] [facility] No Information 0 No Information Consulting Provider: Nilda Dior, [address], [place], [address]. tel:[phone] OFFICE/OUTPA TIENT VISIT, NEW [facility], [address], [place], [place], [address] , tel:[phone] [employer] [facility] sports pe (chief complaint) BMI pediatric, 5th percentile to less than 85% for ageEncounter for screening for eye and ear disordersEncounte r for examination for participation in sport 0 Mary Salcedo. [address], [place], [place], [id number], [place]. tel:[phone] Referring Provider: Raquel Richard, [address], [place], [address]. tel:[phone] Family History Family Member Type Diagnosis Age At Onset No Information Payers Payer name Insurance type Covered libertarian ID Authoraraceli dow(s) [employer] CI [id number] Social History Type Description Quantity Date Captured Comments Sex Female Smoking Status No Information Chief Complaint And Reason For Visit No Information Reason For Referral Reason For Referral No Information History Of Present Illness Encounter Date Complaint History Of Prese nt Illness sports pe 15 year old on M edical van for Sports PE at [employer] [facility]. Covid Testing done prior to visit . Eats well, good variety. 11th grade, [employer] not going well at all. Playing basketball. [facility] completed and reviewed. Functional Status Date [...]
[2025-01-10 10:38] VITALS: BP 106/74; PULSE 61; RESP 15; O2SAT 100
== END 2025-01-10 10:58 | disposition home or self-care (01) ==
PROVIDERS: Emergency Provider Emergency Medicine; PCP Internal Medicine
DX: S61.101A Unspecified open wound of right thumb with damage to nail, initial encounter (principal); W22.8XXA Striking against or struck by other objects, initial encounter
CPT/HCPCS: 12001; 99282